=== PATIENT | male | born 1935 | race Caucasian/White ===

== ENCOUNTER 2017-08-13 13:59 | Emergency (ER) | payer OTHER ==
[~2017-08-13] VITALS: Ht 188 cm; Wt 95.3 kg
[2017-08-13 14:14] VITALS: BP 107/67
== END 2017-08-13 16:06 | disposition home or self-care (01) ==
LOC: ER 13:59
DX: E11.9 Type 2 diabetes mellitus without complications (principal); I10 Essential (primary) hypertension; Z76.0 Encounter for issue of repeat prescription
CPT/HCPCS: 93005

== ENCOUNTER 2018-03-08 23:54 | Inpatient (IN) | payer OTHER ==
[~2018-03-08] VITALS: Ht 188 cm; Wt 89.6 kg
[~2018-03-08 23:54] MED LIST: AMLO5TAB2 PO; ASPI81CH43 PO; FURO40TA4 PO; GABA-339 PO; GLIP-116 PO; LOSA50TA6 PO; METO-169 PO; PANT40TA2 PO; TAMS0.4C36 PO
[2018-03-09 00:59] LABS: Basophils # (auto) 0 uL; Basophils % (auto) 0.5 % (0.0-2.0); Eosinophils # (auto) 0.2 uL; Eosinophils % (auto) 2.9 % (0.0-7.0); Hematocrit 36.7 % (41.0-53.0); Hemoglobin 12.5 g/dL (13.5-17.5); Lymphocytes # (auto) 1.2 uL; Lymphocytes % (auto) 21.4 % (10.0-50.0); Mean Corpuscular Hemoglobin 29.7 pg (28.0-32.0); Mean Corpuscular Hgb Conc. 34.1 g/dL (32.0-36.0); Monocytes # (auto) 0.5 uL; Monocytes % (auto) 8.3 % (0.0-12.0); Neutrophils # (auto) 3.9 uL; Neutrophils % (auto) 66.9 % (37.0-80.0); Nucleated Red Blood Cells % 0.1 %; Platelet Count (auto) 138 10^3/uL (140-450); Red Blood Cells 4.22 10^6/uL (4.5-5.90); Red Cell Distribution Width 15.1 % (11.8-14.3); White Blood Cell 5.8 10^3/uL (4.4-10.8)
[2018-03-09 01:17] LABS: Albumin 2.5 g/dL (3.4-5.0); Anion Gap 5 (5-15); Blood Urea Nitrogen 17 mg/dL (7-18); Calcium 8.5 mg/dL (8.5-10.1); Carbon Dioxide 37 mmol/L (21-32); Chloride 92 mmol/L (98-107); Glucose 176 mg/dL (74-106); Magnesium 1.8 mg/dL (1.6-2.6); Potassium 4.3 mmol/L (3.5-5.1); Sodium 134 mmol/L (136-145)
[2018-03-09 01:19] LABS: Alanine Aminotransferase 15 U/L (16-61); Aspartate Aminotransferase 14 U/L (15-37); BUN/Creatinine Ratio 19.5; GFR African American 108 mL/min; GFR Non-African American 89 mL/min
[2018-03-09 01:24] LABS: Alkaline Phosphatase 75 U/L (45-117); Total Protein 7.4 g/dL (6.4-8.2)
[2018-03-09] MEDS ORDERED: MORPHINE SULF INJ 2 MG/ML SYRINGE 1ML IV ONE (02:30)
[2018-03-09] MEDS ORDERED: FUROSEMIDE 20 MG/2 ML VIAL IV ONE (06:45)
[2018-03-09] MEDS ORDERED: ALBUTEROL SULF 2.5 MG/0.5ML(0.5%) NEB SOLN NEB ONE (06:45)
[2018-03-09] MEDS ORDERED: IPRATROPIUM BROM 0.5 MG/2.5ML INH SOL NEB ONE (06:45)
[2018-03-09] MEDS ORDERED: traZODone HCL 50 MG TAB PO PRN (07:00)
[2018-03-09] MEDS ORDERED: HYDROcodone-ACET 5/325MG TAB PO PRN (07:00)
[2018-03-09] MEDS ORDERED: MORPHINE SULF INJ 2 MG/ML SYRINGE 1ML IV PRN (07:00)
[2018-03-09] MEDS ORDERED: ONDANSETRON HCL 4 MG/2 ML VIAL IV PRN (07:00)
[2018-03-09] MEDS ORDERED: ACETAMINOPHEN 500 MG TAB PO PRN (07:00)
[2018-03-09] MEDS ORDERED: DEXTROSE (50%) 50ML SYRG IV PRN (07:15)
[2018-03-09] MEDS: cefTRIAXone 1GM/10ml IVPUSH 10 ML IV SCH (09:06)
[2018-03-09 10:28] LABS: Urine Bacteria NONE SEEN /hpf (None Seen); Urine Blood Negative /uL (Negative); Urine Mucus FEW (None Seen); Urine Specific Gravity 1.014 (1.001-1.035); Urine WBC 5 /hpf (0 - 3)
[2018-03-09] MEDS: PANTOPRAZOLE 40 MG TAB PO SCH (10:36)
[2018-03-09] MEDS: AZITHROMYCIN 500MG/ 250ML 250 ML IV SCH (10:38)
[2018-03-09] MEDS: ACCU-CHEK COMFORT CURVE STRIP VI SCH ×3 (11:32→21:45)
[2018-03-09] MEDS: InsuLIN REG 1unit/0.01ml Soln (100units/ml) SC SCH ×3 (11:36→21:45)
[2018-03-09] MEDS: ALBUTEROL SULF 2.5 MG/0.5ML(0.5%) NEB SOLN NEB SCH ×2 (12:00→18:12)
[2018-03-09] MEDS: IPRATROPIUM BROM 0.5 MG/2.5ML INH SOL NEB SCH ×2 (12:00→18:12)
[2018-03-09] MEDS: GABAPENTIN 400 MG CAP PO SCH ×2 (14:33→21:45)
[2018-03-09 19:03] VITALS: BP 90/51
[2018-03-10] VITALS (7 sets, daily range): BP systolic 105–122; BP diastolic 62–76
[2018-03-10] MEDS: ALBUTEROL SULF 2.5 MG/0.5ML(0.5%) NEB SOLN NEB SCH ×4 (00:08→19:32)
[2018-03-10] MEDS: IPRATROPIUM BROM 0.5 MG/2.5ML INH SOL NEB SCH ×4 (00:08→19:32)
[2018-03-10] MEDS ORDERED: HYDR-4902 PO (04:48)
[2018-03-10] MEDS ORDERED: PANT40TA2 PO (04:48)
[2018-03-10] MEDS ORDERED: TRAZ100T2 PO (04:48)
[2018-03-10] MEDS ORDERED: FURO40TA PO (04:48)
[2018-03-10] MEDS ORDERED: POTA10TA51 PO (04:48)
[2018-03-10] MEDS ORDERED: GABA400C PO (04:48)
[2018-03-10] MEDS ORDERED: GLIP-116 PO (04:48)
[2018-03-10] MEDS: InsuLIN REG 1unit/0.01ml Soln (100units/ml) SC SCH ×3 (06:22→16:54)
[2018-03-10] MEDS: GABAPENTIN 400 MG CAP PO SCH ×2 (06:23→14:45)
[2018-03-10] MEDS: ACCU-CHEK COMFORT CURVE STRIP VI SCH ×3 (06:23→16:54)
[2018-03-10] MEDS: cefTRIAXone 1GM/10ml IVPUSH 10 ML IV SCH (09:49)
[2018-03-10] MEDS: PANTOPRAZOLE 40 MG TAB PO SCH (09:49)
[2018-03-10] MEDS: AZITHROMYCIN 500MG/ 250ML 250 ML IV SCH (09:49)
[2018-03-10] MEDS ORDERED: FUROSEMIDE 40 MG/4 ML VIAL IV SCH (10:00)
== END 2018-03-10 21:45 | disposition home health service (06) | DRG 189 ==
LOC: EDBD 23:54 → ER 23:59 → TELE 03-09 → TELE-WESTW 03-10 04:20
PROVIDERS: ADMIT Nurse Practitioner Family; ATTEND Internal Medicine
DX: J96.20 Acute and chronic respiratory failure, unspecified whether with hypoxia or hypercapnia (principal); E87.1 Hypo-osmolality and hyponatremia; J20.9 Acute bronchitis, unspecified; I11.0 Hypertensive heart disease with heart failure; I50.9 Heart failure, unspecified; E86.0 Dehydration; E11.65 Type 2 diabetes mellitus with hyperglycemia; E88.09 Other disorders of plasma-protein metabolism, not elsewhere classified; F02.80 Dementia in other diseases classified elsewhere, unspecified severity, without behavioral disturbance, psychotic disturbance, mood disturbance, and anxiety; G30.9 Alzheimer's disease, unspecified; I48.91 Unspecified atrial fibrillation; Z66 Do not resuscitate; Z79.84 Long term (current) use of oral hypoglycemic drugs
CPT/HCPCS: 36415; 51702; 71045; 80053; 81001; 82962; 83036; 83735; 83880; 84484; 85025; 87040; 93005; 94640; 94761; 96374; J0696; J1815; J2405

== ENCOUNTER 2018-09-16 00:40 | Inpatient (IN) | payer OTHER ==
[~2018-09-16] VITALS: Ht 182.9 cm; Wt 113.0 kg
[~2018-09-16 00:40] MED LIST changes: +ACE325T PO; +ALBUAER3 IN; -AMLO5TAB2 PO; +ASPI-231 PO; -ASPI81CH43 PO; +FURO40TA PO; -FURO40TA4 PO; +LEVO500T21 PO; -LOSA50TA6 PO; -METO-169 PO; +NYS15TP TOP; -TAMS0.4C36 PO
[2018-09-16 01:50] LABS: Basophils # (auto) 0 uL; Basophils % (auto) 0.2 % (0.0-2.0); Eosinophils # (auto) 0 uL; Eosinophils % (auto) 0.2 % (0.0-7.0); Hematocrit 39.8 % (41.0-53.0); Hemoglobin 13.6 g/dL (13.5-17.5); Lymphocytes # (auto) 0.9 uL; Lymphocytes % (auto) 6.4 % (10.0-50.0); Mean Corpuscular Hemoglobin 30.4 pg (28.0-32.0); Mean Corpuscular Hgb Conc. 34.3 g/dL (32.0-36.0); Mean Corpuscular Volume 88.7 fL (80.0-100.0); Monocytes # (auto) 0.9 uL; Monocytes % (auto) 6.6 % (0.0-12.0); Neutrophils # (auto) 11.9 uL; Neutrophils % (auto) 86.6 % (37.0-80.0); Platelet Count (auto) 157 10^3/uL (140-450); Red Blood Cells 4.49 10^6/uL (4.5-5.90); White Blood Cell 13.8 10^3/uL (4.4-10.8)
[2018-09-16] MEDS ORDERED: DILTIAZEM HCL 25 MG/5 ML VIAL IV ONE ×2 (02:00→03:15)
[2018-09-16] MEDS ORDERED: DILTIAZEM HCL 60 MG TAB PO ONE (02:00)
[2018-09-16 02:10] LABS: Alanine Aminotransferase 22 U/L (16-61); Albumin 3.2 g/dL (3.4-5.0); Anion Gap 7 (5-15); Aspartate Aminotransferase 15 U/L (15-37); BUN/Creatinine Ratio 11.7; Blood Urea Nitrogen 16 mg/dL (7-18); Calcium 10.5 mg/dL (8.5-10.1); Carbon Dioxide 35 mmol/L (21-32); Chloride 92 mmol/L (98-107); GFR African American 64 mL/min; GFR Non-African American 53 mL/min; Potassium 3.9 mmol/L (3.5-5.1); Sodium 134 mmol/L (136-145)
[2018-09-16 02:15] LABS: Alkaline Phosphatase 87 U/L (45-117); Bilirubin, Total 0.8 mg/dL (0.2-1.0); Total Protein 8.7 g/dL (6.4-8.2)
[2018-09-16 02:16] LABS: Glucose 420 mg/dL (74-106)
[2018-09-16 03:41] LABS: Urine Bacteria FEW /hpf (None Seen); Urine Blood Negative /uL (Negative); Urine Hyaline Cast FEW /lpf (0 - 2); Urine Specific Gravity 1.021 (1.001-1.035); Urine WBC 2 /hpf (0 - 3)
[2018-09-16] MEDS ORDERED: InsuLIN REG 1unit/0.01ml Soln (100units/ml) SC ONE (04:15)
[2018-09-16] MEDS ORDERED: PIPERACILLIN-TAZOB 3.375GM 100 ML IV ONE (05:45)
[2018-09-16 05:57] LABS: Lactic Acid w/Reflex 2.9 mmol/L (0.4-2.0)
[2018-09-16] MEDS ORDERED: SODIUM CHLORIDE 0.9% 500 ML IV ONE ×2 (06:30→07:00)
[2018-09-16] MEDS ORDERED: ALBUMIN 5% 250 ML IV ONE (06:45)
[2018-09-16] MEDS: DILTIAZEM HCL 25 MG/5 ML VIAL IV ONE ×2 (06:56→06:58)
[2018-09-16] MEDS ORDERED: AMIODARONE HCL 900 MG in DEXTROSE 500 ML IV SCH ×2 (06:58→12:58)
[2018-09-16] MEDS ORDERED: ONDANSETRON HCL 4 MG/2 ML VIAL IV PRN (07:00)
[2018-09-16] MEDS ORDERED: MORPHINE SULF INJ 2 MG/ML SYRINGE 1ML IV PRN (07:00)
[2018-09-16] MEDS ORDERED: VANCOMYCIN PER PHARMACY 0 MG IV SCH (07:00)
[2018-09-16] MEDS ORDERED: ACETAMINOPHEN 325 MG TAB PO PRN (07:00)
[2018-09-16] MEDS ORDERED: DEXTROSE (50%) 50ML SYRG IV PRN (07:00)
[2018-09-16] MEDS ORDERED: AMIODARONE HCL 150 MG in D5W 5% 100 ML IV ONE (07:00)
[2018-09-16] MEDS ORDERED: NITROGLYCERIN 0.4 MG SL TAB SL PRN (07:00)
[2018-09-16] MEDS: SODIUM CHLORIDE 0.9% 1,000 ML IV SCH ×2 (07:25→18:51)
[2018-09-16 07:54] LABS: Amylase 31 U/L (25-115); Lipase 187 U/L (73-393)
[2018-09-16] MEDS ORDERED: VANCOMYCIN 1GM/250ML 250 ML IV SCH (08:00)
[2018-09-16] MEDS ORDERED: diphenhdrAMINE HCL 25 MG CAP PO ONE (09:30)
[2018-09-16] MEDS ORDERED: ENOXAPARIN SOD 30 MG/0.3 ML SYRINGE SC SCH (10:00)
[2018-09-16] MEDS: ASPirin 81 mg TAB PO SCH (10:43)
[2018-09-16] MEDS: PANTOPRAZOLE 40 MG TAB PO SCH (10:43)
[2018-09-16] MEDS: AMIODARONE HCL 200 MG TAB PO SCH (10:43)
[2018-09-16] MEDS ORDERED: POTA10TA51 PO (10:49)
[2018-09-16] MEDS: ACCU-CHEK COMFORT CURVE STRIP VI SCH ×2 (10:55→17:14)
[2018-09-16] MEDS: InsuLIN REG 1unit/0.01ml Soln (100units/ml) SC SCH ×2 (11:03→17:17)
--- NOTE | 2018-09-16 11:05 | NUR ---
MD was at bedside - Dr. Gael Pepper Updated MD on the reported Vancomycin reaction. Md verbalized understanding. Orders received and read back to verify. MD to place orders.
--- NOTE | 2018-09-16 11:08 | NUR ---
data collection technician at bedside to transport patient to CT
[2018-09-16] MEDS ORDERED: LEVOFLOXACIN 500 MG TAB PO ONE (11:15)
[2018-09-16] MEDS ORDERED: PIPERACILLIN-TAZOB 3.375GM 100 ML IV SCH (12:00)
--- NOTE | 2018-09-16 12:00 | NUR ---
WOUND CARE NOTE: SPECIALTY AIR MATTRESS ORDERED AT THIS TIME. PATIENT TO BE PLACED, PENDING DELIVERY BY JAS FITCH
[2018-09-16 13:00] VITALS: BP 99/54
--- NOTE | 2018-09-16 15:45 | NUR ---
at bedside - Dr. Lori XAVIER speaking with the patient's daughter who is at bedside.
--- NOTE | 2018-09-16 16:25 | NUR ---
Family at bedside Patient's daughter, Mayi, at bedside.
[2018-09-16 17:00] VITALS: BP 114/70
--- NOTE | 2018-09-16 18:00 | NUR ---
WOUND CARE NOTE: IN TO SEE PATIENT AT THIS TIME PER LOW YAS SCORE 12. PATIENT RECENTLY ADMITTED TO [facility] WITH DIAGNOSIS OF ALOC/SEPSIS. HE IS ASSESSED YAS SCORE OF 12 AT THIS TIME. PATIENT WILL BE PLACED ON SPECIALTY AIR MATTRESS PREVENTATIVE SHORTLY. HE CAN ASSIST WITH HIS TURNING/REPOSITIONING, BUT IS MAX ASSIST. HE IS NOTED TO HAVE RED, BLANCHABLE SKIN TO INTRAGLUTEAL FOLD OF BUTTOCKS/SACRUM. NO OPEN OR NON BLANCHABLE AREAS NOTED. BILATERAL FEET ARE NOTED TO HAVE SOME BLANCHABLE REDNESS NOTED TO THE TOES, WITH FUNGAL NAILS NOTED TO BILATERAL # 1 TOES. NO PRESSURE AREAS NOTED. NO OTHER SKIN INTEGRITY ISSUES NOTED AT THIS TIME. RECOMMEND: FREQUENT TURN SCHEDULE Q 2 HOURS, PRN CONDITION PERMITS, WITH PRESSURE REDISTRIBUTION USING PILLOWS/WEDGES, BID/PRN APPLICATION WITH MOISTURE BARRIER CREAM TO SACRAL SKIN, WITH OPTIFOAM GENTLE SACRAL DRESSING PREVENTATIVE, SPECIALTY AIR MATTRESS, DIETARY CONSULT, CONTINUED MONITORING BY WOUND CARE TEAM.
--- NOTE | 2018-09-16 18:25 | NUR ---
Updated - Dr. Gael Pepper called for update on patient. Update given. Orders received and read back to verify.
--- NOTE | 2018-09-16 18:36 | NUR ---
Spoke with patient's daughter RE: code status. Mayi confirmed patient's code status.
--- NOTE | 2018-09-16 18:51 | NUR ---
Patient transferred to speciality air mattress bed returned to low position with x2 side rails up, call light within reach.
--- NOTE | 2018-09-16 18:52 | NUR ---
End of shift patient resting in bed with even and unlabored respirations, no distress noted. Fall precautions in place with call light within reach. Bed alarm on for safety. Will endorse care to RN.
--- NOTE | 2018-09-16 19:09 | NUR ---
Care endorsed to ARABELLA Jimenez.
[2018-09-16 22:00] VITALS: BP 102/42
[2018-09-17] VITALS (7 sets, daily range): BP systolic 99–133; BP diastolic 52–76
[2018-09-17] MEDS: ACCU-CHEK COMFORT CURVE STRIP VI SCH ×4 (00:22→18:00)
[2018-09-17] MEDS: InsuLIN REG 1unit/0.01ml Soln (100units/ml) SC SCH ×4 (00:23→18:00)
[2018-09-17 06:25] LABS: Basophils # (auto) 0 uL; Basophils % (auto) 0.5 % (0.0-2.0); Eosinophils # (auto) 0.1 uL; Hematocrit 30.3 % (41.0-53.0); Hemoglobin 10.7 g/dL (13.5-17.5); Lymphocytes # (auto) 0.9 uL; Lymphocytes % (auto) 11.3 % (10.0-50.0); Mean Corpuscular Hemoglobin 31.1 pg (28.0-32.0); Mean Corpuscular Hgb Conc. 35.2 g/dL (32.0-36.0); Mean Corpuscular Volume 88.4 fL (80.0-100.0); Monocytes # (auto) 0.6 uL; Monocytes % (auto) 7.4 % (0.0-12.0); Neutrophils # (auto) 6.7 uL; Neutrophils % (auto) 79.8 % (37.0-80.0); Platelet Count (auto) 104 10^3/uL (140-450); Red Blood Cells 3.42 10^6/uL (4.5-5.90); Red Cell Distribution Width 12.4 % (11.8-14.3); White Blood Cell 8.4 10^3/uL (4.4-10.8)
[2018-09-17 06:38] LABS: Potassium 3.5 mmol/L (3.5-5.1)
[2018-09-17 06:42] LABS: Albumin 2.4 g/dL (3.4-5.0); BUN/Creatinine Ratio 18.8; Calcium 8.7 mg/dL (8.5-10.1)
[2018-09-17] MEDS: SODIUM CHLORIDE 0.9% 1,000 ML IV SCH ×2 (06:42→18:18)
[2018-09-17 06:47] LABS: Bilirubin, Total 0.6 mg/dL (0.2-1.0); Total Protein 6.9 g/dL (6.4-8.2)
--- NOTE | 2018-09-17 07:20 | NUR ---
Opening Shift Note Assumed care of patient, asleep upon awaking patient he is alert and responsive at this time, set up breakfast tray per patient request and readjusted patient so he can eat. No S/S of distress/SOB or pain. Instructed on POC and to call for assist PRN, will continue to monitor for changes Q1hr and PRN. Bed locked in lowest position with two side rails up and call light in reach.
[2018-09-17] MEDS: ASPirin 81 mg TAB PO SCH (09:23)
[2018-09-17] MEDS: AMIODARONE HCL 200 MG TAB PO SCH (09:23)
[2018-09-17] MEDS: PANTOPRAZOLE 40 MG TAB PO SCH (09:23)
[2018-09-17] MEDS ORDERED: LEVOFLOXACIN 500 MG TAB PO SCH (10:00)
[2018-09-17] MEDS ORDERED: ENOXAPARIN SOD 40 MG/0.4 ML SYRINGE SC SCH (10:00)
--- NOTE | 2018-09-17 12:16 | NUR ---
Nutrition Consult/assessment Notes Please see attached link for complete assessment Est. Needs ABW [id number] kcal (23-25 kcal/kgBW), 95-104gms pro (1.0-1.1 gms/kgBW). Will continue to monitor pertinent labs and reassess nutrient need prn Addendum: 09/17/18 at [address] Amended: Links added.
--- NOTE | 2018-09-17 17:30 | NUR ---
PER DAUGHTER ROSALBA PATIENT IS NOT EXCEPTED INTO [facility] WILL LET DR VELASCO KNOW.
--- NOTE | 2018-09-17 17:45 | NUR ---
PAGED DR VELASCO
--- NOTE | 2018-09-17 19:00 | NUR ---
PER DR VELASCO CALL [facility] [phone] FOR HOSPICE EVAL
--- NOTE | 2018-09-17 19:07 | NUR ---
PATIENT REFUSED TO EAT DINNER AND SO COVERAGE WAS NOT GIVEN FOR BLOOD SUGAR OF 138
--- NOTE | 2018-09-17 19:09 | NUR ---
DAUGHTER ROSALBA CALLED AND STATES SHE HAS ARRANGED [employer]NAG[employer] ASSISTANT AT 830, SHE IS GOING TO CALL [facility] TO SEE IF THEY CAN EVALUATED PER HER REQUEST. WILL ENDORSE TO NOC NURSE. UPON DISCHARGE PATIENT NEEDS AGUIAR DISCONTINUED.
--- NOTE | 2018-09-17 19:30 | NUR ---
Opening Shift Note Assumed care of patient, awake and alert. No S/S of distress/SOB or pain. Bed in lowest position, locked and side rails up x 2. Call light placed within patient reach and instructed to call for assistance. Read catheter draining to gravity noted. Instructed on POC and to call for assist PRN, will continue to monitor for changes Q1hr and PRN. Signed: 09/17/18 at 2215 by SN ALBERT <Co-Signature Required> Co-Signed: 09/17/18 at 221 by Iris Braden RN
--- NOTE | 2018-09-17 19:30 | NUR ---
CALLED [facility] AND SPOKE TO DIETER. PER DIETER A NURSE WILL BE SENT OUT TONIGHT TO EVALUATE PATIENT.
--- NOTE | 2018-09-17 21:00 | NUR ---
Discharge instructions given as ordered. Encourage to follow up with PMD as instructed. All questions and concerns addressed. Patient and family verbalized understanding. Medication reconciliation form completed and copy given to patient. Home medications held in Pharmacy returned to patient, and needed vaccines given. IV removed with catheter intact, pressure dressing applied, grande catheter removed. Telemetry unit returned to ICU. Patient d/c home on hospice, transported via hospice, accompanied by staff and family member. No distress noted at time of departure. Signed: 09/17/18 at 8 by SN ALBERT <Co-Signature Required> Co-Signed: 09/17/18 at 8 by Iris Braden RN
--- NOTE | 2018-09-18 12:00 | NUR ---
MICROBIOLOGY HAS REPORTED RESULTS OF BLOOD CULTURES GM POSITIVE COCCI IN [facility]ERS. WILL AWAIT SENSITIVITY RESULTS TO NOTIFY PMD
== END 2018-09-17 21:00 | disposition hospice, home (50) | DRG 871 ==
LOC: EDBD 00:40 → ER 00:43 → TELE 07:57 → TELE-WESTW 10:12
PROVIDERS: ADMIT Nurse Practitioner; ATTEND Internal Medicine
DX: A41.9 Sepsis, unspecified organism (principal); G93.41 Metabolic encephalopathy; E87.1 Hypo-osmolality and hyponatremia; J98.11 Atelectasis; N17.9 Acute kidney failure, unspecified; I50.20 Unspecified systolic (congestive) heart failure; I48.2 Chronic atrial fibrillation; E11.9 Type 2 diabetes mellitus without complications; F17.200 Nicotine dependence, unspecified, uncomplicated; I11.0 Hypertensive heart disease with heart failure; K76.0 Fatty (change of) liver, not elsewhere classified; Z66 Do not resuscitate; Z74.01 Bed confinement status; Z86.73 Personal history of transient ischemic attack (TIA), and cerebral infarction without residual deficits
CPT/HCPCS: 36415; 51702; 70450; 71045; 71250; 80053; 81001; 82150; 82962; 83605; 83690; 84484; 85025; 87040; 87077; 87186; 93005; 96365; 96367; 96375; G0378; J1815; J2543